=== PATIENT | female | born 1940 | race Caucasian/White ===

== ENCOUNTER 2016-11-01 04:10 | Emergency (ER) | payer MEDICARE, MEDICAID ==
[~2016-11-01] VITALS: Ht 177.8 cm; Wt 64.9 kg
[~2016-11-01 04:10] MED LIST: ASPI81TA27 PO; ATOR20TA PO; FURO20TA PO; POTA10TA34 PO
[2016-11-01 06:14] LABS: Basophils # (auto) 0 uL; Basophils % (auto) 0.8 % (0.0-2.0); CONDITION Y; Eosinophils # (auto) 0.2 uL; Eosinophils % (auto) 4.3 % (0.0-7.0); Hematocrit 36.8 % (36.0-46.0); Hemoglobin 12.4 g/dL (12.2-16.2); Lymphocytes # (auto) 1.5 uL; Lymphocytes % (auto) 26.5 % (10.0-50.0); Mean Corpuscular Hemoglobin 30.9 pg (28.0-32.0); Mean Corpuscular Hgb Conc. 33.6 g/dL (32.0-36.0); Mean Corpuscular Volume 92.1 fL (80.0-100.0); Monocytes # (auto) 0.7 uL; Neutrophils # (auto) 3.1 uL; Neutrophils % (auto) 55.4 % (37.0-80.0); Platelet Count (auto) 185 10^3/uL (140-450); Red Cell Distribution Width 14.7 % (11.6-16.0); White Blood Cell 5.6 10^3/uL (4.4-10.8)
[2016-11-01] MEDS ORDERED: KETOROLAC TROMETH 30 MG/ML 1ML VIAL IM ONE (06:30)
[2016-11-01 06:48] VITALS: BP 172/75
== END 2016-11-01 07:09 | disposition home or self-care (01) ==
LOC: ER 04:10
DX: R42 Dizziness and giddiness (principal); I25.2 Old myocardial infarction; R51 Headache; M79.645 Pain in left finger(s); E78.5 Hyperlipidemia, unspecified; I10 Essential (primary) hypertension; Z90.49 Acquired absence of other specified parts of digestive tract; W18.39XA Other fall on same level, initial encounter; Y93.89 Activity, other specified; Y92.89 Other specified places as the place of occurrence of the external cause; Y99.8 Other external cause status
CPT/HCPCS: 36415; 70450; 70486; 73140; 81002; 85025; 93005; J1885

== ENCOUNTER 2017-05-07 11:50 | Inpatient (IN) | payer MEDICARE, MEDICAID ==
[~2017-05-07] VITALS: Ht 177.8 cm; Wt 69.5 kg
[2017-05-07] MEDS ORDERED: SODIUM CHLORIDE 0.9% 500 ML IVB ONE (12:10)
[2017-05-07 13:34] LABS: Alanine Aminotransferase 17 U/L (13-56); Albumin 3.5 g/dL (3.4-5.0); Alkaline Phosphatase 75 U/L (45-117); Aspartate Aminotransferase 23 U/L (15-37); BUN/Creatinine Ratio 30.3; Bilirubin, Total 0.5 mg/dL (0.2-1.0); Blood Urea Nitrogen 27 mg/dL (7-18); Calcium 8.9 mg/dL (8.5-10.1); Chloride 104 mmol/L (98-107); GFR African American 79 mL/min; GFR Non-African American 65 mL/min; Glucose 91 mg/dL (74-106); Magnesium 2.5 mg/dL (1.6-2.6); Potassium 3.7 mmol/L (3.5-5.1); Sodium 139 mmol/L (136-145); Total Protein 7.7 g/dL (6.4-8.2)
[2017-05-07 13:56] LABS: Basophils # (auto) 0 uL; Basophils % (auto) 0.7 % (0.0-2.0); Eosinophils # (auto) 0.2 uL; Eosinophils % (auto) 2.8 % (0.0-7.0); Hematocrit 37.8 % (36.0-46.0); Hemoglobin 12.8 g/dL (12.2-16.2); Mean Corpuscular Hemoglobin 30.6 pg (28.0-32.0); Mean Corpuscular Hgb Conc. 33.8 g/dL (32.0-36.0); Mean Corpuscular Volume 90.4 fL (80.0-100.0); Monocytes # (auto) 0.6 uL; Neutrophils # (auto) 3.3 uL; Neutrophils % (auto) 54.5 % (37.0-80.0); Nucleated Red Blood Cells % 0.1 %; Platelet Count (auto) 225 10^3/uL (140-450); Red Blood Cells 4.18 10^6/uL (4.0-5.20); Red Cell Distribution Width 13.4 % (11.8-14.3); White Blood Cell 6.1 10^3/uL (4.4-10.8)
[2017-05-07 14:14] LABS: Anion Gap 9 (5-15); Carbon Dioxide 26 mmol/L (21-32)
[2017-05-07] MEDS ORDERED: hydrALAZINE HCL 10 MG TAB PO ONE (16:00)
[2017-05-07] MEDS ORDERED: LORazepam 0.5 MG TAB PO PRN (16:15)
[2017-05-07] MEDS ORDERED: PROMETHAZINE HCL 25 MG/ML 1ML IV PRN (16:15)
[2017-05-07] MEDS ORDERED: LACTULOSE 20Gm/30ML SOLN PO PRN (16:15)
[2017-05-07] MEDS ORDERED: TEMAZEPAM 15 MG CAP PO PRN (16:15)
[2017-05-07] MEDS ORDERED: ACETAMINOPHEN 500 MG TAB PO PRN (16:15)
[2017-05-07] MEDS ORDERED: NITROGLYCERIN 0.4 MG SL TAB SL PRN (16:15)
[2017-05-07] MEDS ORDERED: MORPHINE SULFATE 10 MG/ML INJ 1ML SDV IV PRN ×2 (16:15)
[2017-05-07] MEDS ORDERED: HYDROcodone-ACET 5/325MG TAB PO PRN (16:15)
[2017-05-07] MEDS: SODIUM CHLORIDE 0.9% 1,000 ML IV SCH (16:41)
[2017-05-07 16:59] LABS: Creatine Kinase IFCC 52 U/L (26-192)
[2017-05-07] MEDS ORDERED: METOPROLOL SUCCINATE XL 50 MG TAB PO ONE (17:00)
[2017-05-07] MEDS ORDERED: LABETALOL HCL 5 MG/ML ML 20ML VIAL IV PRN (17:00)
[2017-05-07] MEDS: LABETALOL HCL 5 MG/ML ML 20ML VIAL IV PRN ×2 (17:46→21:47)
[2017-05-07] MEDS: hydrALAZINE HCL 20 MG/ML VL IV PRN (19:07)
[2017-05-07] MEDS ORDERED: LORazepam 2MG/ML-1ML VIAL IV PRN (21:15)
[2017-05-07] MEDS ORDERED: LABETALOL HCL 5 MG/ML ML 20ML VIAL IV ONE (21:40)
[2017-05-07] MEDS: ATORVASTATIN 20 MG TAB PO SCH (21:59)
[2017-05-07] MEDS: hydrALAZINE HCL 10 MG TAB PO SCH (22:00)
[2017-05-08] VITALS (9 sets, daily range): BP systolic 149–184; BP diastolic 64–97
[2017-05-08] MEDS: hydrALAZINE HCL 10 MG TAB PO SCH ×3 (04:22→21:00)
[2017-05-08] MEDS: SODIUM CHLORIDE 0.9% 1,000 ML IV SCH (04:42)
[2017-05-08 06:59] LABS: Albumin 2.9 g/dL (3.4-5.0); BUN/Creatinine Ratio 24.4; Bilirubin, Total 0.5 mg/dL (0.2-1.0); Calcium 8.4 mg/dL (8.5-10.1); Potassium 3.5 mmol/L (3.5-5.1); Total Protein 6.6 g/dL (6.4-8.2)
[2017-05-08 09:15] LABS: Folate (Folic Acid) 14.17 ng/mL (5.38-24)
[2017-05-08] MEDS ORDERED: METOPROLOL SUCCINATE XL 50 MG TAB PO SCH (10:00)
[2017-05-08] MEDS: ENOXAPARIN SOD 40 MG/0.4 ML SYRINGE SC SCH (10:28)
[2017-05-08] MEDS: PANTOPRAZOLE 40 MG TAB PO SCH (10:29)
[2017-05-08] MEDS: ASPirin-EC 81 mg tab PO SCH (10:29)
[2017-05-08] MEDS ORDERED: FUROSEMIDE 20 MG TAB PO ONE (14:15)
[2017-05-08] MEDS ORDERED: POTASSIUM CHL 10 Meq TABLET PO ONE (14:15)
[2017-05-08] MEDS: hydrALAZINE HCL 20 MG/ML VL IV PRN (17:11)
[2017-05-08] MEDS: ATORVASTATIN 20 MG TAB PO SCH (21:01)
[2017-05-08] MEDS: DONEPEZIL HYDROCHLORIDE 5 MG TAB PO SCH (21:01)
[2017-05-08] MEDS ORDERED: ARTIFICIAL TEARS 15ml EACHEYE PRN (22:00)
[2017-05-09] VITALS (7 sets, daily range): BP systolic 140–192; BP diastolic 65–94
[2017-05-09] MEDS: LABETALOL HCL 5 MG/ML ML 20ML VIAL IV PRN (02:14)
[2017-05-09] MEDS: LEVOTHYROXINE SODIUM 50 MCG TAB PO SCH (06:04)
[2017-05-09] MEDS: hydrALAZINE HCL 10 MG TAB PO SCH ×3 (06:04→22:01)
[2017-05-09 06:30] LABS: Basophils # (auto) 0 uL; Basophils % (auto) 0.4 % (0.0-2.0); Eosinophils # (auto) 0.3 uL; Eosinophils % (auto) 5.9 % (0.0-7.0); Hematocrit 35.5 % (36.0-46.0); Hemoglobin 12.1 g/dL (12.2-16.2); Lymphocytes # (auto) 1.2 uL; Lymphocytes % (auto) 21.9 % (10.0-50.0); Mean Corpuscular Hemoglobin 30.4 pg (28.0-32.0); Mean Corpuscular Volume 89.6 fL (80.0-100.0); Monocytes # (auto) 0.6 uL; Monocytes % (auto) 11.4 % (0.0-12.0); Neutrophils # (auto) 3.3 uL; Neutrophils % (auto) 60.4 % (37.0-80.0); Platelet Count (auto) 204 10^3/uL (140-450); Red Blood Cells 3.97 10^6/uL (4.0-5.20); Red Cell Distribution Width 13.3 % (11.8-14.3); White Blood Cell 5.5 10^3/uL (4.4-10.8)
[2017-05-09 06:47] LABS: Albumin 3.1 g/dL (3.4-5.0); BUN/Creatinine Ratio 25.8; Calcium 8.9 mg/dL (8.5-10.1); Potassium 3.7 mmol/L (3.5-5.1)
[2017-05-09 06:49] LABS: Bilirubin, Total 0.7 mg/dL (0.2-1.0); Total Protein 6.9 g/dL (6.4-8.2)
[2017-05-09] MEDS: ENOXAPARIN SOD 40 MG/0.4 ML SYRINGE SC SCH (09:51)
[2017-05-09] MEDS: POTASSIUM CHL 10 Meq TABLET PO SCH (09:51)
[2017-05-09] MEDS: FUROSEMIDE 20 MG TAB PO SCH (09:52)
[2017-05-09] MEDS: PANTOPRAZOLE 40 MG TAB PO SCH (09:52)
[2017-05-09] MEDS: ASPirin-EC 81 mg tab PO SCH (09:52)
[2017-05-09] MEDS: METOPROLOL TARTRATE 50 MG TAB PO SCH (09:52)
[2017-05-09] MEDS: hydrALAZINE HCL 20 MG/ML VL IV PRN (12:43)
[2017-05-09] MEDS: DONEPEZIL HYDROCHLORIDE 5 MG TAB PO SCH (22:02)
[2017-05-09] MEDS: ATORVASTATIN 20 MG TAB PO SCH (22:02)
[2017-05-09] MEDS: ASCORBIC ACID 500 MG TAB PO SCH (22:02)
[2017-05-10] MEDS: LABETALOL HCL 5 MG/ML ML 20ML VIAL IV PRN (00:28)
[2017-05-10 05:43] VITALS: BP 146/72
[2017-05-10] MEDS: hydrALAZINE HCL 10 MG TAB PO SCH (06:09)
[2017-05-10] MEDS: LEVOTHYROXINE SODIUM 50 MCG TAB PO SCH (06:09)
[2017-05-10 06:47] LABS: Basophils # (auto) 0 uL; Basophils % (auto) 0.4 % (0.0-2.0); Eosinophils # (auto) 0.2 uL; Eosinophils % (auto) 4.3 % (0.0-7.0); Hematocrit 34.6 % (36.0-46.0); Hemoglobin 11.9 g/dL (12.2-16.2); Lymphocytes % (auto) 17.5 % (10.0-50.0); Mean Corpuscular Hgb Conc. 34.5 g/dL (32.0-36.0); Mean Corpuscular Volume 89.9 fL (80.0-100.0); Monocytes # (auto) 0.7 uL; Monocytes % (auto) 12.9 % (0.0-12.0); Neutrophils # (auto) 3.6 uL; Neutrophils % (auto) 64.9 % (37.0-80.0); Platelet Count (auto) 200 10^3/uL (140-450); Red Blood Cells 3.85 10^6/uL (4.0-5.20); Red Cell Distribution Width 13.3 % (11.8-14.3); White Blood Cell 5.5 10^3/uL (4.4-10.8)
[2017-05-10 07:12] LABS: BUN/Creatinine Ratio 24.3; Calcium 8.8 mg/dL (8.5-10.1); Potassium 3.7 mmol/L (3.5-5.1)
[2017-05-10 07:30] LABS: Bilirubin, Total 0.8 mg/dL (0.2-1.0); Total Protein 6.9 g/dL (6.4-8.2)
[2017-05-10 08:00] VITALS: BP 159/73
[2017-05-10 08:30] VITALS: BP 166/88
[2017-05-10 08:34] VITALS: BP 159/73
[2017-05-10 09:46] VITALS: BP 146/72
[2017-05-10] MEDS: ASPirin-EC 81 mg tab PO SCH (09:46)
[2017-05-10] MEDS: PANTOPRAZOLE 40 MG TAB PO SCH (09:47)
[2017-05-10] MEDS: METOPROLOL TARTRATE 50 MG TAB PO SCH (09:47)
[2017-05-10] MEDS: POTASSIUM CHL 10 Meq TABLET PO SCH (09:48)
[2017-05-10] MEDS: ASCORBIC ACID 500 MG TAB PO SCH (09:48)
[2017-05-10] MEDS: FUROSEMIDE 20 MG TAB PO SCH (09:48)
[2017-05-10] MEDS: ENOXAPARIN SOD 40 MG/0.4 ML SYRINGE SC SCH (09:49)
== END 2017-05-10 10:33 | disposition home or self-care (01) | DRG 292 ==
LOC: ER 11:50 → TELE 11:51 → TELE-EAST 21:00
PROVIDERS: ADMIT Internal Medicine; ATTEND Family Medicine
DX: I11.0 Hypertensive heart disease with heart failure (principal); G45.9 Transient cerebral ischemic attack, unspecified; E11.9 Type 2 diabetes mellitus without complications; F03.90 Unspecified dementia, unspecified severity, without behavioral disturbance, psychotic disturbance, mood disturbance, and anxiety; I50.9 Heart failure, unspecified; R55 Syncope and collapse; I16.0 Hypertensive urgency; E78.00 Pure hypercholesterolemia, unspecified; E78.5 Hyperlipidemia, unspecified; G89.4 Chronic pain syndrome; Z86.73 Personal history of transient ischemic attack (TIA), and cerebral infarction without residual deficits; Z87.891 Personal history of nicotine dependence; Z91.041 Radiographic dye allergy status; Z95.2 Presence of prosthetic heart valve; Z90.49 Acquired absence of other specified parts of digestive tract; Z88.1 Allergy status to other antibiotic agents; Z91.012 Allergy to eggs; Z88.0 Allergy status to penicillin; Z88.8 Allergy status to other drugs, medicaments and biological substances; Z91.018 Allergy to other foods
CPT/HCPCS: 36415; 70450; 70551; 71045; 78582; 80053; 80061; 82550; 82607; 82746; 82962; 83735; 84443; 84484; 85025; 85379; 85652; 87081; 93005; 93306; 93886; 93970; 94761; 95819; 96361; 96374